=== PATIENT | male | born 1975 | race African-American/Black ===

== ENCOUNTER 2020-09-19 13:37 | Outpatient (CLI) | payer OTHER, SELFPAY | END 2020-09-19 13:38 | disposition home or self-care (01) | LOC: ANHAUDIO 13:39 | DX: H65.23 Chronic serous otitis media, bilateral (principal) | CPT/HCPCS: 92557; 92567 ==

== ENCOUNTER 2022-09-10 13:28 | Outpatient (CLI) | payer OTHER, SELFPAY | END 2022-09-10 13:29 | disposition home or self-care (01) | LOC: ANHAUDIO 13:29 | PROVIDERS: Visit Provider Otolaryngology | DX: H65.22 Chronic serous otitis media, left ear (principal); H90.41 Sensorineural hearing loss, unilateral, right ear, with unrestricted hearing on the contralateral side; H90.72 Mixed conductive and sensorineural hearing loss, unilateral, left ear, with unrestricted hearing on the contralateral side | CPT/HCPCS: 92557; 92567 ==

== ENCOUNTER 2024-09-22 07:55 | Outpatient (CLI) | payer OTHER, SELFPAY | END 2024-09-22 07:56 | disposition home or self-care (01) | LOC: ANHAUDIO 07:57 | PROVIDERS: PCP Internal Medicine Infectious Disease; Visit Provider Otolaryngology | DX: H65.22 Chronic serous otitis media, left ear (principal) | CPT/HCPCS: 92567 ==